=== PATIENT | male | born 2000 | race Caucasian/White ===

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

== ENCOUNTER 2019-07-30 14:59 | Emergency (ER) | payer OTHER ==
[~2019-07-30] VITALS: Ht 180.3 cm; Wt 74.4 kg
[~2019-07-30 14:59] MED LIST changes: +DICYCLOMINE HCL20 MG PO; +ONDANSETRON ODT4 MG PO
[2019-07-30] MEDS ORDERED: CLONIDINE HCL0.1 MG PO (15:17)
[2019-07-30] MEDS ORDERED: HYDROXYZINE PAM50 MG PO (15:18)
== END 2019-07-30 16:00 | disposition home or self-care (01) ==
LOC: ED 14:59
DX: K21.9 Gastro-esophageal reflux disease without esophagitis (principal); M62.82 Rhabdomyolysis; J45.909 Unspecified asthma, uncomplicated; F90.9 Attention-deficit hyperactivity disorder, unspecified type; F41.9 Anxiety disorder, unspecified; Z79.899 Other long term (current) drug therapy
CPT/HCPCS: 99284

== ENCOUNTER 2021-02-10 11:26 | Emergency (ER) | payer OTHER ==
[~2021-02-10] VITALS: Ht 180.3 cm; Wt 67.6 kg
[~2021-02-10 11:26] MED LIST changes: +CLONIDINE HCL0.1 MG PO; +HYDROXYZINE PAM50 MG PO
--- OUTSIDE RECORDS SUMMARY | 2021-02-10 11:34 | XMS ---
PreManage Notification: JELENA MORRELL Security Esthetician/Spa Coordinator Events 1 event(s) in the past 18 months Most recent security events: Elopement at [facility] 01/13/2021 17:16 - Other Details: PATIENT LWBS CRITERIA MET - [facility] - Has Care Guidelines - [facility] - 2 Visits in 30 Days CARE PROVIDERS PATTI [facility] Current PHONE: Unknown Guidelines [facility]: 09/12/2019 Care Coordination: Member is currently enrolled in Mental Health Services through [employer] [facility] [employer] services. If services are needed through [employer] [facility] [employer] please call: Landon [phone] [place]; [phone] [facility] [phone] Boo VISIT COUNT (12 MO.) 2 [facility] TOTAL 2 NOTE: Visits indicate total known visits. ED/UCC VISIT TRACKING (12 MO.) 02/10/2021 11:27 [facility] TYPE: Emergency COMPLAINT: - ABDOMINAL PAIN 01/13/2021 17:16 [facility] TYPE: Emergency COMPLAINT: - LOWER ABDOMINAL PAIN INPATIENT VISIT TRACKING (12 MO.) No inpatient visits to display in this time frame [email or web address]
[2021-02-10] MEDS ORDERED: OMEPRAZOLE20 MG PO (11:59)
[2021-02-10] MEDS ORDERED: ADVIL200 MG PO (12:00)
[2021-02-10] MEDS ORDERED: HYDROCODON-ACE1 EA10 PO (14:57)
== END 2021-02-10 15:19 | disposition home or self-care (01) ==
LOC: ED 11:26
DX: K59.00 Constipation, unspecified (principal); J45.909 Unspecified asthma, uncomplicated; Z79.899 Other long term (current) drug therapy
CPT/HCPCS: 74177; 80053; 81001; 83605; 83690; 85025; 99284-25; Q9967